=== PATIENT | male | born 1955 | race Caucasian/White ===

== ENCOUNTER → 2021-05-18 | Outpatient (CLI) | payer MEDICARE | LOC: LAB 12:29 → LAB SHORT 12:29 | DX: D48.5 Neoplasm of uncertain behavior of skin (principal); D23.39 Other benign neoplasm of skin of other parts of face; L81.4 Other melanin hyperpigmentation; L82.1 Other seborrheic keratosis | CPT/HCPCS: 88305 ==

== ENCOUNTER 2021-06-09 08:23 | Day surgery (SDC) | payer MEDICARE ==
[~2021-06-09] VITALS: Ht 182.9 cm; Wt 64.3 kg
--- NOTE | 2021-06-09 11:36 | NUR ---
06/09/21 1135 Dulce Hope LATE ENTRY---DURING PRE OP PROCESS PATIENT HAD ANXIETY ATTACK WHEN IV ATTEMPT FAILED. HE WAS VERY WORKED UP AND UPSET AND NERVOUS. EVENTUALLY MA WAS ABLE TO START THE IV WITHOUT ANY OTHER INCIDENT. DURING COMPLIANCE ATTORNEY OF PATIENT HE EXPRESSED HOW ANXIOUS HE WAS AND HE WAS WORRIED HE WOULD WAKE UP THIS HAPPENED ON PREVIOUS PROCEDURE. RN REASSURRED PATIENT AND SPOKE WITH DR ROBLES AND RN WAS GIVEN ORDER FOR VERSED. THIS WILL BE GIVEN IN ENDO ROOM. PATIENT TO THE BATHROOM PRIOR TO ENTRY INTO ENDO ROOM
== END 2021-06-09 10:28 | disposition home or self-care (01) ==
LOC: ORSCSDS 08:23
PROVIDERS: Surgery
PROC: 0DBN8ZX Excision of Sigmoid Colon, Via Natural or Artificial Opening Endoscopic, Diagnostic (ICD-10-PCS; principal; 2021-06-09 09:30)
DX: Z12.11 Encounter for screening for malignant neoplasm of colon (principal); Z86.010 Personal history of colon polyps; K63.5 Polyp of colon; K64.8 Other hemorrhoids; K64.4 Residual hemorrhoidal skin tags; K57.30 Diverticulosis of large intestine without perforation or abscess without bleeding; F17.210 Nicotine dependence, cigarettes, uncomplicated; Z79.899 Other long term (current) drug therapy
CPT/HCPCS: 88305; J2250; J2704; J7120

== ENCOUNTER 2024-08-21 07:24 | Day surgery (SDC) | payer MEDICARE ==
[~2024-08-21] VITALS: Ht 182.9 cm; Wt 63.4 kg
[2024-08-21] MEDS ORDERED: Lactated Ringer's 1,000 ML IV ONE ×2 (07:26→08:32)
[2024-08-21] MEDS ORDERED: propofoL 50 ML IV ONE (07:26)
[2024-08-21] MEDS ORDERED: FOLIC ACID (07:37)
[2024-08-21] MEDS ORDERED: ERGO50000 (07:37)
[2024-08-21] MEDS ORDERED: IBUP200 (07:37)
[2024-08-21] MEDS ORDERED: MULVITA (07:37)
[2024-08-21] MEDS ORDERED: Calcium Acetat667 MG (07:37)
[2024-08-21] MEDS ORDERED: NICO21TP (07:38)
[2024-08-21 09:26] VITALS: BP 110/78
--- NOTE | 2024-08-21 09:30 | NUR ---
08/21/24 2330 TOOTIE RAYGOZA PT HAS CONGESTION/ WHEEZES IN LUNGS/ COUGHING TO CLEAR DR ROBLES NOTIFIED/ PT TO KEEP AN EYE ON HIS LUNGS AND BREATHING, QUIT SMOKING AND FOLLOW UP W/ PCP. INSTRUCTED ON LUNG HYGIENE PT STATES HIS LUNGS GOOD/NORMAL
== END 2024-08-21 09:31 | disposition home or self-care (01) ==
LOC: ORSCSDS 07:24
PROVIDERS: Surgery
PROC: 0DJD8ZZ Inspection of Lower Intestinal Tract, Via Natural or Artificial Opening Endoscopic (ICD-10-PCS; principal; 2024-08-21 08:45)
DX: Z12.11 Encounter for screening for malignant neoplasm of colon (principal); K57.30 Diverticulosis of large intestine without perforation or abscess without bleeding; K64.8 Other hemorrhoids; Z86.0101 Personal history of adenomatous and serrated colon polyps; Z86.0102 Personal history of hyperplastic colon polyps; E78.5 Hyperlipidemia, unspecified; Z87.891 Personal history of nicotine dependence
CPT/HCPCS: J2704; J7120